=== PATIENT | male | born 1990 | race African-American/Black ===

== ENCOUNTER 2024-10-05 16:45 | Outpatient (CLI) | payer OTHER, SELFPAY | END 2024-10-05 16:46 | disposition home or self-care (01) | PROVIDERS: Visit Provider Physician Assistant | DX: Z11.3 Encounter for screening for infections with a predominantly sexual mode of transmission (principal); R10.31 Right lower quadrant pain; R10.32 Left lower quadrant pain | CPT/HCPCS: 87491; 87591 ==

== ENCOUNTER 2024-10-27 11:50 | Outpatient (CLI) | payer BC, SELFPAY | END 2024-10-27 11:51 | disposition home or self-care (01) | PROVIDERS: Visit Provider Physician Assistant | DX: Z11.3 Encounter for screening for infections with a predominantly sexual mode of transmission (principal); Z11.4 Encounter for screening for human immunodeficiency virus [HIV]; Z11.59 Encounter for screening for other viral diseases | CPT/HCPCS: 86592; 86703; 86706; 86803; 87340 ==